=== PATIENT | male | born 1970 | race African-American/Black ===

== ENCOUNTER 2023-01-21 00:57 | Emergency (ER) | payer SELFPAY ==
[~2023-01-21] VITALS: Ht 172.7 cm; Wt 102.1 kg
[2023-01-21 01:09] VITALS: BP_SYST 142
[2023-01-21 01:19] VITALS: BP_SYST 135
== END 2023-01-21 01:18 | disposition home or self-care (01) ==
LOC: SED 00:57
DX: S61.213A Laceration without foreign body of left middle finger without damage to nail, initial encounter (principal); Z79.899 Other long term (current) drug therapy; X08.8XXA Exposure to other specified smoke, fire and flames, initial encounter; Y93.89 Activity, other specified; Y92.89 Other specified places as the place of occurrence of the external cause; Y99.8 Other external cause status
CPT/HCPCS: 99281